=== PATIENT | female | born 1970 | race Caucasian/White ===

== ENCOUNTER 2024-01-02 21:15 | Emergency (ER) | payer MEDICAID, OTHER ==
[~2024-01-02] VITALS: Ht 157.5 cm; Wt 76.2 kg
[2024-01-02] MEDS: TETRACAINE HCL/PF 0.5% OPTH 4 ML BTL OP ONE
[2024-01-02] MEDS: FLUORESCEIN OPTH STRIP 1 MG OP ONE
[~2024-01-02 21:15] MED LIST: SYN.025 PO
[2024-01-02 21:30] VITALS: BP 125/71; PULSE 59; RESP 18; TEMP 97.5; O2SAT 100
[2024-01-02 21:53] VITALS: BP 125/71; PULSE 59; RESP 18; TEMP 97.5; O2SAT 100
[2024-01-03] MEDS ORDERED: TOBR5SOL38 LEFT EYE (00:34)
== END 2024-01-03 00:45 | disposition home or self-care (01) ==
LOC: MED 21:15
DX: H10.9 Unspecified conjunctivitis (principal); E03.9 Hypothyroidism, unspecified; Z79.899 Other long term (current) drug therapy
CPT/HCPCS: 99283